=== PATIENT | female | born 2005 | race Caucasian/White ===

== ENCOUNTER 2025-04-26 18:28 | Emergency (ER) | payer BC, SELFPAY ==
[2025-04-26 18:30] VITALS: BP 129/95
[2025-04-26 19:00] LABS: Hematocrit 40.0 % (37.0-47.0); Hemoglobin 14.3 g/dL (12.0-16.0); Mean Corp Hgb Conc. 35.8 g/dL (33.0-37.0); Mean Corpuscular Volume 84.6 fL (81.0-99.0); Nucleated Red Blood Cells % 0 %; Platelet Count 221 10^3/uL (130-400); Red Cell Dist. Width 11.8 % (11.5-14.5)
[2025-04-26 19:18] LABS: HCG, Serum Qualitative Screen Negative
[2025-04-26 19:36] LABS: ALT (SGPT) 24 U/L (0-35); AST (SGOT) 34 U/L (14-36); Albumin 4.7 g/dl (3.5-5.0); Alkaline Phosphatase 76 U/L (38-126); Blood Urea Nitrogen 15 mg/dl (7-17); Calcium 9.8 mg/dl (8.4-10.2); Carbon Dioxide 24 mmol/L (22-30); Chloride 103 mmol/L (98-107); Glucose 205 mg/dl (70-99); Potassium 4.0 mmol/L (3.5-5.1); Sodium 133 mmol/L (135-145); Total Protein 8.3 g/dl (6.3-8.2); eGFR > 60.00
[2025-04-26 19:39] LABS: COVID-19 Antigen Negative (Negative)
[2025-04-26 21:06] LABS: Urine Character Clear (Clear)
--- NOTE | 2025-04-26 21:18 | ED.GENMED ---
History of Present Illness
General
Chief Complaint: Fever
Source: patient
Exam Limitations: none
Time Seen by Provider: 04/26/25 21:01
History of Present Illness
History of Present Illness:
20yoF with a history of type 1 diabetes, hypothyroidism, and migraines presenting with her mother for evaluation of a fever. Symptoms have been present for the past 2 days. She reports fevers up to 101 at home. She is also experiencing body
aches, chills, headaches, and neck pain. She has been taking ibuprofen at home for her fevers. Patient has a history of migraines and she currently rates her headache as an 8/10 in severity. She is otherwise asymptomatic and denies any vomiting,
diarrhea, abdominal pain, UTI symptoms, rash, sick contacts, recent travel.
Phy Exam
General Physical Exam
General Presentation: well appearing and no apparent distress
General Skin: warm and dry
General Habitus: normal
General Mental: alert
General Hydration: appears well hydrated
ENT Exam
ENT Exam: TM's normal, pharynx normal, neck supple and normocephalic
Additional ENT: Full ROM of cervical spine without meningismus. Negative Kernig sign.
Cardiovascular Exam
Cardiovascular Exam: regular rate/rhythm
Pulmonary Exam
Pulmonary Exam: lungs clear, no respiratory distress, no rales, no crackles, no rhonchi and no wheezing
Gastrointestinal Exam
Gastrointestinal Exam: non tender, soft and non distended
Neurological Exam
Neurological Exam: alert
Amanda Coma Scale
Eye Opening: Spontaneous
Verbal Response: Oriented
Motor Response: Obeys Commands
GCS Total Score: 15
Skin Exam
Skin Exam: normal color and warm/dry
Psychiatric Exam
Psychiatric Exam: normal mood/affect
Sepsis
Sepsis Screening
Sepsis Assessment: Sepsis Ruled Out
Sepsis Screen
Sepsis Screen: Sepsis Ruled Out
Date: 04/27/25
Time: 00:38
Course
Orders/Labs/Results
Orders:
Orders
04/26/25 18:37
Test Result ONCE
04/26/25 18:46
COVID-19 Antigen Urgent
Source: Nasal Swab
Complete Blood Count/With Diff Urgent
Comprehensive Metabolic Panel Urgent
HCG, Serum Qualitative Screen Urgent
Lactate Level [Lactic Acid] Urgent
Influenza A+B Rapid Molecular Urgent
LINA Source: Nasal Swab
Specimen Description:
04/26/25 19:45
Urinalysis Reflex To Culture Urgent
Date Specimen was Collected: 04/26/25
Time Specimen was Collected: 18:37
Urine Microscopic Reflex Cult Urgent
Urine Culture Urgent
LINA Source: U
Specimen Description:
Date Specimen was Collected: 04/26/25
Time Specimen was Collected: 18:37
04/26/25 21:16
0.9% Sodium Chloride 1000 ml [Nss] 1,000 ml IV BOLUS
Diphenhydramine [Benadryl] 25 mg IV NOW STA
Ketorolac [Toradol] 15 mg IV NOW STA
Magnesium Sulfate 2 Gram/50 ml [Magnesium Sulfate] 2 gram in 50 ml IV NOW
Metoclopramide [Reglan] 10 mg IV NOW STA
Abnormal Lab Results
04/26/25 04/26/25
18:46 19:45
WBC 4.5 L 10^3/uL
(4.8-10.8)
Sodium 133 L mmol/L
(135-145)
Glucose 205 H mg/dl
(70-99)
Total Protein 8.3 H g/dl
(6.3-8.2)
Urine Ketones 2+ A
(Negative)
Ur Occult Blood Reflex 1+ A
(Negative)
Urine Bacteria (Reflex) Moderate A
(Negative)
04/26/25 18:46
04/26/25 18:46
Vital Signs
Initial and Last Documented VS:
Initial Vital Signs
Temp Pulse Resp BP Pulse Ox
99.0 F 100 15 129/95 99
04/26/25 18:30 04/26/25 18:30 04/26/25 18:30 04/26/25 18:30 04/26/25 18:30
Last Documented Vital Signs
Temp Pulse Resp BP Pulse Ox
99.0 F 100 15 129/95 99
04/26/25 18:30 04/26/25 18:30 04/26/25 18:30 04/26/25 18:30 04/26/25 21:20
MDM/Problems Addressed
Differential Diagnosis Includes:
20yoF here with fever, body aches, headache, neck pain x 2 days. Hx of T1DM. Otherwise asymptomatic. Temp 99.0 on arrival. Remainder of vitals stable. She is very well-appearing on exam and is resting comfortably. No focal signs of infection
noted on exam. Neck is supple without nuchal rigidity. No visualized rash. Differential diagnosis includes but is not limited to: Viral illness, UTI, tick borne illness, no clinical evidence of meningitis
Initial ED plan: Workup initiated in triage. White count is 4.5. Lactate normal. Glucose is 205. Bicarb is WNL. COVID/flu testing negative. UA pending. IV migraine cocktail, fluid bolus, and reassess.
*Pulse Oximetry
SaO2: 99
Oxygen Mode of Delivery: Room air
Patient hypoxic: no (99%)
*Critical Care Note
Total Time (30-74mins, 75-104mins- exclusive of procedures): Not Applicable
Update Note
Update Note:
UA with 2+ ketones although again, bicarb is normal ruling out DKA. No overt signs of infection on urinalysis. On reassessment, patient is feeling significantly improved. Headache is down to a 3/10 in severity. Clinical presentation consistent
with a viral illness. Recommend supportive care and close follow-up with PCP. ED return precautions reviewed. Patient in agreement with plan and she was discharged in stable condition.
ED Attending Note
-
Portions of this chart may have been created with voice recognition software.� Occasional wrong word or��sound alike� substitutions may have occurred due to the inherent limitations of voice recognition software.
Discharge Plan
Departure
Patient Disposition: Home (Routine Discharge)
Date of Disposition: 04/26/25
Time of Disposition: 23:15
Patient with high blood pressure during this ER visit?: No
Discharge Problem:
Fever, Acute nonintractable headache
Instructions: Viral Syndrome (DC)
Referrals:
Tiny Post CRNP [Family Provider, Internal Medicine]
Activity Restrictions/Additional Instructions:
Drink plenty of fluids and hydrate. Take Tylenol and ibuprofen as needed for headaches/fevers.
Please follow-up with your family doctor in 1-2 days. Return to the ER with any new or worsening symptoms.
Interventions
Interventions:
*Risk Screen - Suicide Last Done: 04/26/25 18:30
*General Assessment Last Done: 04/26/25 22:03
*Neglect/Abuse Screening Last Done: 04/26/25 18:30
*ED- Fall Risk Assessment Last Done: 04/26/25 22:03
*ED COVID-19 Vaccine History Last Done: 04/26/25 22:03
*Nursing Disposition Last Done: 04/26/25 23:26
ED- Neurological Assessment Last Done: 04/26/25 22:03
ED-Skin Assessment Last Done: 04/26/25 22:03
Discharge Date and Time
Discharge Date/Time: 04/26/25 23:21
Print Language: MEXICAN
[2025-04-26] MEDS: BENADRYL 25 MG IV (21:47)
[2025-04-26] MEDS: NSS 1000 IV (21:47)
[2025-04-26] MEDS: REGLAN 10 MG IV (21:49)
[2025-04-26] MEDS: TORADOL 15 MG IV (21:50)
[2025-04-26] MEDS: MAGNESIUM SULFATE 50 IV (22:00)
[2025-04-26 22:02] VITALS: BMI 31.6
[2025-04-26 23:22] LABS: Urine Red Blood Cell 0-2 /HPF (0-2); Urine Squamous Cell >30 /LPF (Few)
== END 2025-04-26 23:21 | disposition home or self-care (01) ==
LOC: EMR 18:28
PROVIDERS: Emergency Medicine; EMERGENCY PHYSICIAN Emergency Medicine; FAMILY PHYSICIAN Nurse Practitioner Primary Care
DX: R51.9 Headache, unspecified (principal); R50.9 Fever, unspecified; M54.2 Cervicalgia; M79.10 Myalgia, unspecified site; Z11.52 Encounter for screening for COVID-19; E03.9 Hypothyroidism, unspecified
CPT/HCPCS: 99284; 96365; 96375 ×3; 80053; 81003; 81015; 83605; 84703; 85025; 87086; 87502; 87811

== ENCOUNTER 2025-04-30 10:12 | Emergency (ER) | payer BC, SELFPAY ==
[2025-04-30 10:31] VITALS: BP 107/66
[2025-04-30 13:05] VITALS: BMI 29.2
--- NOTE | 2025-04-30 13:09 | ED.GENMED ---
History of Present Illness
<Renetta Uribe MD, Resident - Last Filed: 04/30/25 14:47>
General
Chief Complaint: Fever
Source: patient
Exam Limitations: none
Time Seen by Provider: 04/30/25 11:55
Nursing documentation reviewed up to this point in time: agreed with
History of Present Illness
History of Present Illness:
Ms. Parag Zheng is a 20-year-old female with a PMH notable for type 1 diabetes and hypothyroidism, who is presenting with fever to 102 �F for 7 days, as well as headache, neck pain, and nausea.
She has not had vomiting. She thinks the nausea may be due to constipation for 1 week. Her neck pain is on the left side at the base of her skull. She thought that she left neck pain from sleeping on a very position. She thinks that she points
to the headache as being at the center of her forehead and feels like the other headache she has gone before this fever.
Presented to the ED on 04/26/2025 for the same symptoms and was discharged with the working diagnosis of a viral infection. Yesterday she went to her PCP who ordered labs for Lyme, mononucleosis, and West Nile virus. She is returning to the
ED due to her fever increasing from 101 to 102 degrees and feeling worse, especially more fatigued.
She endorses pleuritic chest pain during one of her high fevers.
Review of Systems
<Renetta Uribe MD, Resident - Last Filed: 04/30/25 14:47>
Review of Systems
All Other Systems: ROS reviewed and negative except as documented in HPI and ROS
Constitutional: Reports fever
EENT: Reports no symptoms
Respiratory: Reports no symptoms
Cardiac: Reports no symptoms
ABD/GI: Reports constipated
: Reports no symptoms
Musculoskeletal: Reports no symptoms
Skin: Reports no symptoms
Neurological: Reports no symptoms
Phy Exam
<Renetta Uribe MD, Resident - Last Filed: 04/30/25 14:47>
General Physical Exam
General Presentation: well appearing and no apparent distress
General age: appears stated age
Course
<Renetta Uribe MD, Resident - Last Filed: 04/30/25 14:47>
Orders/Labs/Results
Orders:
Orders
04/30/25 12:15
Blood Culture Q30M
LINA Source: Blood/Venous
Specimen Description:
04/30/25 13:06
Lactic Acid Q4H
Comment: CANCEL 2nd LACTIC ACID IF 1st LACTIC ACID IS LESS THAN 2
04/30/25 13:07
Basic Metabolic Panel Urgent
Complete Blood Count/With Diff Urgent
Lyme Progressive Urgent
Monotest Urgent
West Nile Virus, IgM, Serum [S] Urgent
Blood Culture Q30M
LINA Source: Blood/Venous
Specimen Description:
04/30/25 15:45
Lactic Acid Q4H
Comment: CANCEL 2nd LACTIC ACID IF 1st LACTIC ACID IS LESS THAN 2
Abnormal Lab Results
04/30/25
13:07
RBC 3.96 L 10^6/uL
(4.20-5.40)
Hgb 11.9 L g/dL
(12.0-16.0)
Hct 33.1 L %
(37.0-47.0)
Neutrophils % 38.8 L %
(42.2-75.2)
Lymphocytes % 53.5 H %
(20.5-51.1)
Sodium 131 L mmol/L
(135-145)
Glucose 225 H mg/dl
(70-99)
Monoscreen Positive A
(Negative)
04/30/25 13:07
04/30/25 13:07
Vital Signs
Initial and Last Documented VS:
Initial Vital Signs
Temp Pulse Resp BP Pulse Ox
98.7 F 86 20 107/66 100
04/30/25 10:31 04/30/25 10:31 04/30/25 10:31 04/30/25 10:31 04/30/25 10:31
Last Documented Vital Signs
Temp Pulse Resp BP Pulse Ox
98.7 F 86 20 107/66 100
04/30/25 10:31 04/30/25 10:31 04/30/25 10:31 04/30/25 10:31 04/30/25 13:11
<Vijay Fitzgerald, DO - Last Filed: 04/30/25 14:49>
Orders/Labs/Results
Orders:
Orders
04/30/25 12:15
Blood Culture Q30M
LINA Source: Blood/Venous
Specimen Description:
04/30/25 13:06
Lactic Acid Q4H
Comment: CANCEL 2nd LACTIC ACID IF 1st LACTIC ACID IS LESS THAN 2
04/30/25 13:07
Basic Metabolic Panel Urgent
Complete Blood Count/With Diff Urgent
Lyme Progressive Urgent
Monotest Urgent
West Nile Virus, IgM, Serum [S] Urgent
Blood Culture Q30M
LINA Source: Blood/Venous
Specimen Description:
04/30/25 15:45
Lactic Acid Q4H
Comment: CANCEL 2nd LACTIC ACID IF 1st LACTIC ACID IS LESS THAN 2
Abnormal Lab Results
04/30/25
13:07
RBC 3.96 L 10^6/uL
(4.20-5.40)
Hgb 11.9 L g/dL
(12.0-16.0)
Hct 33.1 L %
(37.0-47.0)
Neutrophils % 38.8 L %
(42.2-75.2)
Lymphocytes % 53.5 H %
(20.5-51.1)
Sodium 131 L mmol/L
(135-145)
Glucose 225 H mg/dl
(70-99)
Monoscreen Positive A
(Negative)
04/30/25 13:07
04/30/25 13:07
Vital Signs
Initial and Last Documented VS:
Initial Vital Signs
Temp Pulse Resp BP Pulse Ox
98.7 F 86 20 107/66 100
04/30/25 10:31 04/30/25 10:31 04/30/25 10:31 04/30/25 10:31 04/30/25 10:31
Last Documented Vital Signs
Temp Pulse Resp BP Pulse Ox
98.7 F 86 20 107/66 100
04/30/25 10:31 04/30/25 10:31 04/30/25 10:31 04/30/25 10:31 04/30/25 13:11
<Renetta Uribe MD, Resident - Last Filed: 04/30/25 14:47>
MDM/Problems Addressed
Differential Diagnosis Includes:
Infection: Lyme, mono, west nile virus
Inflammatory: autoimmune disease
MDM/Problems Addressed:
CBC
CMP
Lyme titer
Mononucleosis: positive
West nile virus:
Blood cultures: pending
<Renetta Uribe MD, Resident - Last Filed: 04/30/25 14:47>
*Pulse Oximetry
SaO2: 100
Oxygen Mode of Delivery: Room air
Patient hypoxic: no
*Critical Care Note
Total Time (30-74mins, 75-104mins- exclusive of procedures): Not Applicable
ED Attending Note
<Renetta Uribe MD, Resident - Last Filed: 04/30/25 14:47>
-
Portions of this chart may have been created with voice recognition software.� Occasional wrong word or��sound alike� substitutions may have occurred due to the inherent limitations of voice recognition software.
<Vijay Fitzgerald, DO - Last Filed: 04/30/25 14:49>
ED Attending Note
Patient seen and examined by attending physician: Yes
I performed a history and physical exam of patient and discussed management with resident, I reviewed resident's note and agree with documented findings and plan of care.: Yes
ED Attending Note:
I have reviewed and agree with history and plan by Renetta Uribe MD. My exam revealed abdomen soft, nontender, no organomegaly. No respiratory distress, afebrile. Blood test consistent with mono. This matches her history and of fevers for 7 days
and fatigue. Stable for discharge. Precautions given about physical sports and contact.
Discharge Plan
Departure
Patient Disposition: Home (Routine Discharge)
Date of Disposition: 04/30/25
Time of Disposition: 14:27
Patient with high blood pressure during this ER visit?: No
Condition: Good
Discharge Problem:
Mononucleosis
Instructions: Mononucleosis
Referrals:
Tiny Post CRNP [Family Provider, Internal Medicine]
Activity Restrictions/Additional Instructions:
Dear Parag, you came to the ED for a fever for 1 week and fatigue. The labs came back positive for mononucleosis. This is a self-resolving viral infection. Do take care to avoid high-impact contact sports, as some people develop enlarged spleens or
livers that are prone to rupturing on contact while they have mononucleosis.
Please return if you develop abdomoinal pain, shortness of breath, chest pain, trouble swallowing, new fevers, or loss of consciousness.
Interventions
Interventions:
*Risk Screen - Suicide Last Done: 04/30/25 10:31
*General Assessment Last Done: 04/30/25 10:31
*Neglect/Abuse Screening Last Done: 04/30/25 10:31
Discharge Date and Time
Print Language: WELSH
[2025-04-30 13:25] VITALS: BP 125/67
[2025-04-30 13:38] LABS: Hematocrit 33.1 % (37.0-47.0); Hemoglobin 11.9 g/dL (12.0-16.0); Mean Corp Hgb Conc. 36.0 g/dL (33.0-37.0); Mean Corpuscular Volume 83.6 fL (81.0-99.0); Red Cell Dist. Width 11.9 % (11.5-14.5)
[2025-04-30 14:00] LABS: Nucleated Red Blood Cells % 0 %
[2025-04-30 14:27] LABS: Blood Urea Nitrogen 11 mg/dl (7-17); Calcium 8.9 mg/dl (8.4-10.2); Carbon Dioxide 24 mmol/L (22-30); Chloride 105 mmol/L (98-107); Glucose 225 mg/dl (70-99); Sodium 131 mmol/L (135-145); eGFR > 60.00
--- NOTE | 2025-04-30 15:00 | EDRN ---
Pt left ambulatory in no distress, with family member . has her dc instructions and all questions answered prior to her leaving.
[2025-04-30 15:02] VITALS: BP 112/74
== END 2025-04-30 15:16 | disposition home or self-care (01) ==
LOC: EMR 10:12
PROVIDERS: EMERGENCY PHYSICIAN Emergency Medicine; FAMILY PHYSICIAN Nurse Practitioner Primary Care
DX: B27.90 Infectious mononucleosis, unspecified without complication (principal); E10.9 Type 1 diabetes mellitus without complications; E03.9 Hypothyroidism, unspecified
CPT/HCPCS: 99283; 80048; 83605; 85025; 86308; 86618; 86788; 87040